=== PATIENT | male | born 1955 | race Caucasian/White ===

== ENCOUNTER → 2018-02-09 | Outpatient (CLI) | payer OTHER ==
[~2018-02-09] MED LIST: ASPI81CH PO; INSULANPEN SC; INVOKANA300 MG PO; LISI5 PO; METF500 PO
== END | disposition home or self-care (01) ==
LOC: LAB FUT 02-07 16:00 → LAB SHORT 08:58 → OLS 08:58
DX: E11.9 Type 2 diabetes mellitus without complications (principal)
CPT/HCPCS: 82043

== ENCOUNTER 2020-04-13 00:43 | Day surgery (SDC) | payer OTHER | END 2020-04-13 23:13 | disposition home or self-care (01) | LOC: WOUND 00:43 | DX: E11.621 Type 2 diabetes mellitus with foot ulcer (principal); L97.519 Non-pressure chronic ulcer of other part of right foot with unspecified severity; Z79.4 Long term (current) use of insulin; Z79.899 Other long term (current) drug therapy; Z79.82 Long term (current) use of aspirin | CPT/HCPCS: G0463 ==

== ENCOUNTER 2020-04-20 00:21 | Day surgery (SDC) | payer OTHER | END 2020-04-20 22:40 | disposition home or self-care (01) | LOC: WOUND 00:21 | DX: E11.621 Type 2 diabetes mellitus with foot ulcer (principal); L98.9 Disorder of the skin and subcutaneous tissue, unspecified; E78.00 Pure hypercholesterolemia, unspecified; L97.519 Non-pressure chronic ulcer of other part of right foot with unspecified severity; Z79.4 Long term (current) use of insulin; Z79.899 Other long term (current) drug therapy | CPT/HCPCS: 11102 ==

== ENCOUNTER 2020-04-27 00:30 | Day surgery (SDC) | payer OTHER | END 2020-04-27 22:40 | disposition home or self-care (01) | LOC: WOUND 00:30 | DX: E11.621 Type 2 diabetes mellitus with foot ulcer (principal); C44.619 Basal cell carcinoma of skin of left upper limb, including shoulder; E78.00 Pure hypercholesterolemia, unspecified; L97.519 Non-pressure chronic ulcer of other part of right foot with unspecified severity; Z79.4 Long term (current) use of insulin; Z79.82 Long term (current) use of aspirin; Z79.899 Other long term (current) drug therapy | CPT/HCPCS: G0463 ==

== ENCOUNTER 2023-07-12 07:39 | Day surgery (SDC) | payer MEDICARE, OTHER ==
[~2023-07-12] VITALS: Ht 180.3 cm; Wt 95.0 kg
[2023-07-12] MEDS ORDERED: ATOR10 (07:50)
[2023-07-12] MEDS ORDERED: TRULICITY0.75 MG/01 (07:50)
[2023-07-12] MEDS ORDERED: INSULANI (07:50)
[2023-07-12] MEDS ORDERED: OCUVITE BLUE L1 EACH (07:51)
[2023-07-12] MEDS ORDERED: CALCIUM 500 MG1 EAC2 (07:51)
[2023-07-12 10:08] VITALS: BP 128/69
--- NOTE | 2023-07-12 10:10 | NUR ---
07/12/23 1010 Cheryl Renteria IV WNL, PT TOW.
== END 2023-07-12 10:00 | disposition home or self-care (01) ==
LOC: ORSCSDS 07:39
PROVIDERS: Internal Medicine Gastroenterology
PROC: 0DJD8ZZ Inspection of Lower Intestinal Tract, Via Natural or Artificial Opening Endoscopic (ICD-10-PCS; principal; 2023-07-12 09:00)
DX: Z12.11 Encounter for screening for malignant neoplasm of colon (principal); K57.30 Diverticulosis of large intestine without perforation or abscess without bleeding; Z80.0 Family history of malignant neoplasm of digestive organs; Z86.010 Personal history of colon polyps; R12 Heartburn; E11.9 Type 2 diabetes mellitus without complications; Z79.4 Long term (current) use of insulin; Z79.899 Other long term (current) drug therapy
CPT/HCPCS: 82947; J2704; J7120